=== PATIENT | female | born 1995 | race Caucasian/White ===

== ENCOUNTER 2017-07-21 19:48 | Emergency (ER) | payer OTHER ==
[2017-07-21] MEDS ORDERED: NS 0.9% 1000 ML* 2,000 ML IV ONE (22:43)
--- NOTE | 2017-07-21 23:38 | ED ---
Ester Chris Nilda, scribed for Ilia Brunson MD on 07/21/17 at 2316 . Abdominal Pain/Female - HPI Summary HPI Summary: This patient is a 22 year old F presenting to [facility] accompanied by friend with a chief complaint of intermittent stabbing epigastric pain for 2 hours since 1700 today while walking to her car. The patient rates the pain 8/10 in severity at its worse, but it is no longer present. Symptoms aggravated by walking and alleviated by spontaneous resolution. Patient reports nausea and chronic back pain (2 months). Patient denies fever, chills, burning with urination, vaginal discharge, diarrhea, blood in stools, constipation, rhinorrhea, cough, and recent sickness. LNMP 2 weeks ago. - History of Current Complaint Chief Complaint: EDAbdPain Stated Complaint: ABD PAIN Time Seen by Provider: 07/21/17 23:05 Hx Obtained From: Patient Onset/Duration: Sudden Onset, Lasting Hours, Resolved Timing: Intermittent Episode Lasting - 2 hours Severity Initially: Severe Severity Currently: None Pain Intensity: 8 Pain Scale Used: 0-10 Numeric Location: Epigastric Aggravating Factor(s): Movement Alleviating Factor(s): Spontaneous Resolution Associated Signs and Symptoms: Positive: Back Pain, Nausea. Negative: Fever, Cough, Constipation, Blood in Stool, Urinary Symptoms, Vaginal Discharge, Vomiting, Diarrhea Allergies/Adverse Reactions: Allergies Allergy/AdvReac Type Severity Reaction Status Date / Time Peanut-containing Drug Allergy Rash Verified 07/21/17 19:57 Products PMH/Surg Hx/FS Hx/Imm Hx Sensory History: Denies: Hx Legally Blind EENT History: Denies: Hx Deafness Infectious Disease History: No Infectious Disease History: Denies: Traveled Outside the [place] in Last 30 Days - Family History Known Family History: Negative: Hypertension, Diabetes - Social History Alcohol Use: Occasionally Substance Use Type: Reports: None Smoking Status (MU): Never Smoked Tobacco Review of Systems Positive: Other - negative recent sickness. Negative: Fever, Chills Negative: Nasal Discharge Negative: Cough Positive: Abdominal Pain - epigastric, resolved, Nausea - resolved, Other - negative bloody stools, constipation. Negative: Vomiting, Diarrhea Negative: burning, discharge Positive: Other - negative back pain All Other Systems Reviewed And Are Negative: Yes Physical Exam Triage Information Reviewed: Yes Vital Signs On Initial Exam: Initial Vitals Temp Pulse Resp BP Pulse Ox 98.2 F 77 16 124/77 99 07/21/17 19:55 07/21/17 19:55 07/21/17 19:55 07/21/17 19:55 07/21/17 19:55 Vital Signs Reviewed: Yes Appearance: Positive: Well-Appearing, No Pain Distress Skin: Positive: Warm, Skin Color Reflects Adequate Perfusion, Dry Head/Face: Positive: Normal Head/Face Inspection Eyes: Positive: EOMI, JOSIAH ENT: Positive: Normal ENT inspection Neck: Positive: Supple, Nontender Respiratory/Lung Sounds: Positive: Clear to Auscultation, Breath Sounds Present Cardiovascular: Positive: RRR Abdomen Description: Positive: Soft, Other: - minimal tenderness to RLQ and periumbilical area; no rebound Bowel Sounds: Positive: Present Musculoskeletal: Positive: Normal, Strength/ROM Intact Neurological: Positive: Normal, Sensory/Motor Intact, Alert, Oriented to Person Place, Time Psychiatric: Positive: Affect/Mood Appropriate - [place] Coma Scale Coma Scale Total: 15 Diagnostics - Vital Signs Vital Signs Temp Pulse Resp BP Pulse Ox 07/21/17 21:56 97.8 F 65 18 112/65 99 07/21/17 19:55 98.2 F 77 16 124/77 99 - Laboratory Lab Statement: Any lab studies that have been ordered have been reviewed, and results considered in the medical decision making process. Abdominal Pain Fem Course/Dx - Course Course Of Treatment: Allergies and medication reviewed. ON INITIAL EXAM, PATIENT REPORTS ABD PAIN GONE, LAST EPISODE WAS 2 HOURS AGO. MINIMALLY TENDER RLQ AND PERIUMBILICAL ON EXAM. NO REBOUND. NO FEVER. PATIENT HUNGRY; ATE IN ED. DISCUSSED LABS AND FURTHER WORK UP; WITH APPETITE RETURNED, NO FEVER AND NO PAIN WILL D/C HOME WITH PMD F/U; RETURN IF WORSE. DISCUSSED S/SX OF APPENDICITIS. - Diagnoses Provider Diagnoses: Abdominal pain Discharge - Discharge Plan Condition: Stable Disposition: HOME Patient Education Materials: Acute Abdominal Pain (ED) Referrals: [facility] [place] [Primary Care Provider] - Additional Instructions: FOLLOW UP WITH YOUR DOCTOR. RETURN TO THE EMERGENCY DEPARTMENT FOR ANY WORSENING OF YOUR CONDITION; PAIN, PAIN IN THE RIGHT LOWER ABDOMEN, FEVER, VOMITING, YOU FEEL ILL OR QUESTIONS OR CONCERNS. The documentation as recorded by the Ester farfan Nilda accurately reflects the service I personally performed and the decisions made by me, Ilia Brunson MD.
[2017-07-22 00:02] VITALS: BP 109/63
== END 2017-07-22 | disposition home or self-care (01) ==
LOC: ED 19:48
DX: R10.13 Epigastric pain (principal); R11.0 Nausea; M54.9 Dorsalgia, unspecified
CPT/HCPCS: 99282

== ENCOUNTER 2019-03-04 09:45 | Day surgery (SDC) | payer OTHER ==
[~2019-03-04 09:45] MED LIST: Buffered Lidocaine 1% SYRIN* 1 ML/SYRINGE INTRADERM ONE; Dexamethasone IV* 4 MG/ML 1 ML (4 MG) IV SLOW PU ONE; Famotidine IV* 10 MG/ML 2 ML (20 mg) IV ONE; Lactated Ringers 1000 ML Bag* 1,000 ML IV SCH
[2019-03-04] MEDS ORDERED: Dexamethasone IV* 4 MG/ML 1 ML (4 MG) ONE (10:13)
[2019-03-04] MEDS ORDERED: Famotidine IV* 10 MG/ML 2 ML (20 mg) ONE (10:13)
[2019-03-04] MEDS ORDERED: Midazolam* 1 MG/ML 2 ML VIAL (2 MG) ONE (10:51)
[2019-03-04] MEDS ORDERED: fentaNYL* 50 MCG/ML 2 ML VIAL (100 MCG VIAL) ONE (10:51)
[2019-03-04] MEDS ORDERED: Bupivacaine 0.25% SDV PF* 10 ML VIAL INJ ONE (11:58)
[2019-03-04] MEDS ORDERED: Propofol* 10 MG/ML 20 ML BTL ONE (12:08)
[2019-03-04] MEDS ORDERED: Lidocaine 2% PF * 5 ML VIAL ONE (12:08)
[2019-03-04] MEDS ORDERED: Naloxone* 0.4 MG/ML 1 ML VIAL IV PRN (12:28)
[2019-03-04] MEDS ORDERED: ceFAZolin 2 GM PREMIX in ORs 2 GM/50 ML BAG IVPB ONE (12:44)
[2019-03-04 13:27] VITALS: BP 112/73
--- NOTE | 2019-03-04 16:07 | OP ---
DATE OF OPERATION: 03/04/19 - [facility] DATE OF : 89 SURGEON: Donald Tariq MD GALLERY ASSISTANT: AMOL Umana. An expanded function dental assistant was needed for the procedure to aid in positioning of the arm and retraction. ANESTHESIOLOGIST: Dr. Brady. ANESTHESIA: Local MAC. PRE-OP DIAGNOSIS: Foreign body, right hand, near the MCP joint area of the index finger. POST-OP DIAGNOSIS: Wooden splinter adjacent to the flexor tendons and at the level of the A1 heladio, essentially inside the flexor tendon sheath. OPERATIVE PROCEDURE: 1. Removal of deep foreign body inside the flexor tendon sheath, right index finger. 2. Tenosynovectomy and irrigation and debridement of right index finger flexor tendons along the length of the tendons from the area of the carpal tunnel out to the fingertip. INDICATIONS: Tatiana had gotten a wooden splinter in that area. She had pulled it out and she felt like she got it all out. She initially had received some antibiotics. Any signs of infection had cleared up. I saw her in the office and I told her we should just watch it and it would probably get better as it continued to heal. A couple of weeks later, she came back and said it was still painful and so due to concern for the wooden foreign body, I brought to her to the operating room the next day to explore it and remove any potential foreign substance. There still does not look like there are any signs of infection. ESTIMATED BLOOD LOSS: 2 mL. COMPLICATIONS: None. FINDINGS: See above and below. DESCRIPTION OF PROCEDURE: Tatiana was seen in the preoperative holding area. The correct side, site and procedure were identified. We came back to the operating room where the arm was prepped and draped in the usual fashion and time-out was performed. I had already infiltrated the operative area with 0.25% Marcaine. After the tourniquet was inflated, I went through the prior puncture site and made a little Melody-type incision in the distal palm over the index finger MCP joint. Full- thickness flap was raised off the flexor tendon sheath. Nothing looked like it was in the subcutaneous tissue. When I put some Ragnell retractors, there is yellow granular material just proximal to the A1 heladio surrounding the flexor tendons. I excised all of that and handed that off as part of the specimen. After I had excised that portion of what essentially was the A0 heladio, I noted just adjacent and radial to the FDP tendon, there was a wooden fragment. It was about a centimeter and a half long, a few millimeters wide. It came out in 1 piece. This was handed off as a specimen. At this point, given the fact that she had had wood next to her flexor tendons and essentially inside the flexor tendon sheath, I decided she needed a full I and D of the entire flexor tendon sheath and so I have extended my incision proximally in the palm. I went ahead and performed a full tenosynovectomy of the FDP and FDS tendons. Once all the tenosynovitis was excised and sent for culture, I made a V- shaped incision that was radially based over the index finger DIP joint flexion crease. Full-thickness flap was raised off the flexor tendon sheath and the distal flexor tendon sheath was opened. I then used a pediatric feeding tube to irrigate the flexor tendon sheath with 300 mg of saline. This was done by passing the pediatric feeding tube inside the flexor tendon sheath along the length of the finger and also proximally back up towards the carpal tunnel. After I had done the tenosynovectomy and irrigated out the flexor tendon sheath , everything was looking very clean. There was no inflammatory tissue that remained. I therefore closed the skin very loosely with 4-0 nylon suture. Wound was dressed and she had received a dose of antibiotics. She was placed in soft dressings and taken to the recovery room in stable condition. POSTOPERATIVE PLAN: We are going to start her on Augmentin. Follow up the cultures in the next day or 2; if we need to change the antibiotics, we will at that time. Followup will be in a week. [id number]/[facility] #: [id number] BOBBY
== END 2019-03-04 13:24 | disposition home or self-care (01) ==
LOC: OREAST 09:45
PROVIDERS: ATTEND Orthopaedic Surgery Hand Surgery
DX: S61.441A Puncture wound with foreign body of right hand, initial encounter (principal); M65.841 Other synovitis and tenosynovitis, right hand; F41.8 Other specified anxiety disorders; X58.XXXA Exposure to other specified factors, initial encounter; Y92.9 Unspecified place or not applicable
CPT/HCPCS: 81025; 87070; 87073; 87205; 88304; J0690; J1100; J2250; J2704; J3010; J3490